=== PATIENT | female | born 1995 ===

== ENCOUNTER 2024-12-10 14:28 | Emergency (ER) | payer SELFPAY ==
[2024-12-10 15:09] VITALS: BP 118/74; PULSE 82; RESP 16; TEMP 36.7; O2SAT 100
--- NOTE | 2024-12-10 15:29 | PD.EDWOUND ---
ED Wound/Laceration-RME/HPI General Chief Complaint: Wound Recheck / Suture Removal Stated Complaint: SUTURES REMOVE Time Seen by Provider: 12/10/24 15:26 Arrival date/time: 12/10/24 14:28 RME / HPI RME / HPI narrative: DR. MELENDEZ MAIN ED EVALUATION: 29-year-old female with no past medical history presents for removal of left forearm sutures after an accidental laceration while washing dishes, she had the sharp part of the knife facing up. She has no current complaints. The wound was originally repaired at [facility]; patient reports a total of 24 sutures placed (linear wound with two parallel lines of sutures). No known allergies. Review of Systems Review of Systems Systems Reviewed: All systems reviewed, normal except as documented Past Medical History Social History SMOKING STATUS: Never smoker SUBSTANCE USE: does not use ALCOHOL: Never ED Exam Narrative Physical exam: GENERAL APPEARANCE: alert and oriented x 4, well-developed, well-nourished, no acute distress VITALS: All vitals were reviewed and the pulse ox is 100% on room air, which is normal according to my interpretation. HEENT: Normocephalic, atraumatic; pupils equal, round, reactive to light; EOMI; mucous membranes pink, moist; oropharynx clear NECK: Supple LUNGS: CTABL; no wheezes, no rales, no rhonchi HEART: Regular rate, regular rhythm; normal S1, S2; no murmurs ABDOMEN: non distended; normal BS; soft, no tenderness, no guarding, no rebound; no masses, no organomegaly, no hernia BACK: no CVA tenderness EXTREMITIES: Patient had a well-healed left Forearm laceration that was closed with 24 sutures (now here for removal of stitches); no signs of infection. NEUROLOGIC: awake; alert and oriented x4; cranial nerves II-XII grossly intact; no focal sensory or motor deficits PSYCHIATRIC: appropriate mood and affect SKIN: warm, dry, normal color; no rashes Course Quality Measures none Vital Signs Vital signs: Vital Signs Temperature 98.1 F 12/10/24 15:09 Pulse Rate 82 12/10/24 15:09 Respiratory Rate 16 12/10/24 15:09 Blood Pressure 118/74 12/10/24 15:09 Pulse Oximetry (%) 100 12/10/24 15:09 Oxygen Delivery Method Room Air 12/10/24 15:09 PROCEDURES: Procedure Comment Suture Removal of the Left Forearm, 24 sutures, Procedure Note Indication: Removal of sutures from left forearm following prior laceration repair. Consent: Verbal consent obtained from patient; procedure explained including risks (minor bleeding, infection, wound reopening), benefits, and alternatives. Preparation: Patient positioned comfortably with the left forearm exposed. Hands washed and clean gloves donned. Sterile equipment used (sterile forceps and suture scissors). Wound inspected and noted to have approximated edges without active drainage or gross erythema. Procedure: Using forceps to gently lift each suture knot and sterile scissors to cut and remove the suture at the knot/base, a total of 24 sutures were removed sequentially. Patient tolerated the procedure well. No complications. Wound / Laceration MDM Narrative MDM Narrative:: 29-year-old female with no past medical history presents with chief complaint of suture removal from the left forearm. On brief inspection in the ED the wound is ready for suture removal without active bleeding or reported pain at rest. Plan is to perform removal of 24 sutures at the bedside using standard sterile technique, inspect the wound for any signs of infection or dehiscence. Patient will receive wound care instructions and return precautions for signs of infection. No further imaging or labs are indicated at this time. Procedure without any complications, see procedure for details and patient ready for discharge. Differential diagnosis: Well-healed laceration post-repair versus wound infection/cellulitis, wound dehiscence, or retained suture reaction. Most likely diagnosis given after review of the tests above: Encounter for removal of sutures Demi Webb am scribing for and in the presence of Dr. Melendez. Patient data External records reviewed:: None Clinical information provided by:: patient Social determinants that could affect healthcare access:: none Patient has the following chronic illnesses:: Denies any PMHx, surgeries, daily medications, or known allergies. How is presenting disease/condition affected by chronic disease/condition?: no chronic disease Evaluation data The following diagnostics were reviewed and interpreted by me:: other (specify) (none) Lab and/or radiology exams considered but not ordered:: none Interpretation Summary: n/a Medications / Prescriptions Medications or Prescriptions considered but not ordered:: none Medication administrations:: none Consultations Consultation(s) initiated? (list below): No Diagnosis Wound Differential Diagnosis: other (Well-healed laceration post-repair versus wound infection/cellulitis, wound dehiscence, or retained suture reaction.) Most likely diagnosis given after review of the tests above:: Encounter for removal of sutures Admission Indicated Admission indicated?: not indicated Admission Request Was there a request for admission?: No Disposition Plan Disposition Plan: Discharge Discharge Attestation Discharge Attestation: The patient and all family members were given an opportunity to ask questions and understood the discharge instructions. Discharge instructions specifically effects, indications for sooner follow up or return to the emergency department, and the expected course of current diagnosis. Patient condition: Stable Discharge Plan Plan Patient Disposition: HOME (Self Care) Patient condition on transfer: Stable Problem List Clinical Impression: Encounter for removal of sutures Patient/Caregiver Discharge Instructions Education Materials: ED Stitches/Staple Removal No ... Print Language: [place] Citizen Stand Alone Forms: Cortney Award Info., Patient Portal Info Letter
== END 2024-12-10 15:59 | disposition home or self-care (01) ==
LOC: SERX 16:02
PROVIDERS: Emergency Provider Emergency Medicine
DX: S51.812D Laceration without foreign body of left forearm, subsequent encounter (principal); W26.0XXD Contact with knife, subsequent encounter
CPT/HCPCS: 99281